=== PATIENT | male | born 1985 | race African-American/Black ===

== ENCOUNTER 2024-11-11 09:03 | Emergency (ER) | payer BC, OTHER ==
[2024-11-11 09:11] VITALS: BP 154/87; PULSE 73; RESP 18; TEMP 98; BMI 34.6
[2024-11-11] MEDS ORDERED: LIDOCAINE HCL 1%, 10 MG/ML (20ML VIAL) ONE (10:06)
[2024-11-11] MEDS: LIDOCAINE HCL 1%, 10 MG/ML (50 mL VIAL) INF ONE (10:11)
[2024-11-11] MEDS ORDERED: IBUPROFEN 400 MG TABLET (FP) PO ONE (10:35)
[2024-11-11] MEDS: IBUPROFEN 400 MG TABLET (FP) PO ONE (10:38)
== END 2024-11-11 10:59 | disposition home or self-care (01) ==
LOC: JERFT 09:03
PROC: 0H9GXZZ Drainage of Left Hand Skin, External Approach (ICD-10-PCS; principal; 2024-11-11)
DX: L03.012 Cellulitis of left finger (principal); M79.645 Pain in left finger(s)
CPT/HCPCS: 87070; 87205; 99283-25